=== PATIENT | female | born 1995 | race American Indian/Alaskan Native ===

== ENCOUNTER 2021-07-14 09:05 | Emergency (ER) | payer SELFPAY ==
[2021-07-14 10:40] LABS: Bilirubin,Urine NEG (Negative); Blood,Urine NEG (Negative); Color,Urine Yellow (Yellow); Mucus,Urine FEW /HPF; Protein,Urine <15 mg/dL mg/dL (Negative); Urobilinogen,Urine < 2.0 mg/dL (<2.0)
--- NOTE | 2021-07-14 10:48 | XRay Report ---
CHEST 2 VIEWS INDICATION / CLINICAL INFORMATION: chest pain with abdominal pain. COMPARISON: None available. FINDINGS: SUPPORT DEVICES: None. HEART / MEDIASTINUM: No significant abnormality. LUNGS / PLEURA: No significant pulmonary or pleural abnormality. No pneumothorax. ADDITIONAL FINDINGS: No significant additional findings. IMPRESSION: 1. No acute findings. Signer Name: Emery Stearns DO Signed: 07/14/2021 10:43 AM Workstation Name: [id number]
[2021-07-14 11:14] LABS: Basophils % (Auto) 0.4 % (0.0-1.8); Eosinophils # (Auto) 0.6 K/mm3 (0.0-0.4); Eosinophils % (Auto) 6.6 % (0.0-4.3); Hematocrit 34.6 % (30.3-42.9); Hemoglobin 11.2 gm/dl (10.1-14.3); Lymphocytes # (Auto) 2.4 K/mm3 (1.2-5.4); Lymphocytes % (Auto) 25.6 % (13.4-35.0); Mean Corpuscular HGB Conc 32 % (30-34); Mean Corpuscular Volume 81 fl (79-97); Monocytes # (Auto) 0.9 K/mm3 (0.0-0.8); Monocytes % (Auto) 9.4 % (0.0-7.3); Platelet Count 465 K/mm3 (140-440); Red Blood Count 4.28 M/mm3 (3.65-5.03); Red Cell Distribution Width 15.6 % (13.2-15.2)
[2021-07-14 11:38] LABS: Alanine Aminotransferase 17 units/L (7-56); Albumin 4.4 g/dL (3.9-5); Blood Urea Nitrogen 15 mg/dL (7-17); Calcium 9.4 mg/dL (8.4-10.2); Hemolysis Index 0
[2021-07-14 11:41] LABS: BUN/Creatinine Ratio 21
--- NOTE | 2021-07-14 13:51 | Emergency Department Report ---
ED General Adult HPI - General Chief complaint: Abdominal Pain Stated complaint: CHEST PAIN Time Seen by Provider: 07/14/21 13:43 Source: patient Mode of arrival: Ambulatory Limitations: No Limitations - History of Present Illness Initial comments: Patient is 25 years old female with no significant past medical history. Patient presented to the ER complaining of 1 week history of chest pain, left- sided, sharp with no radiation. Patient stated that pain increases with movement of her left arm. Patient denies any recent injury. She denied any fever or chills. No cough or shortness of breath. Patient also complaining of lower abdominal pain that has been going on on and off for the last few month. She denied any urinary symptoms or vaginal discharge. Severity scale (0 -10): 8 - Related Data Allergies Allergy/AdvReac Type Severity Reaction Status Date / Time No Known Allergies Allergy Unverified 07/14/21 14:17 ED Review of Systems ROS: Stated complaint: CHEST PAIN Other details as noted in HPI Comment: All other systems reviewed and negative Constitutional: denies: chills, fever Respiratory: denies: cough, shortness of breath, SOB with exertion Cardiovascular: chest pain. denies: palpitations Gastrointestinal: abdominal pain. denies: nausea, vomiting, diarrhea, constipation, hematemesis, hematochezia Musculoskeletal: denies: back pain Neurological: denies: headache, weakness, numbness, paresthesias, confusion ED Past Medical Hx - Past Medical History Previous Medical History?: No - Surgical History Past Surgical History?: No ED Physical Exam - General Limitations: No Limitations General appearance: alert, in no apparent distress - Head Head exam: Present: atraumatic, normocephalic, normal inspection - Eye Eye exam: Present: normal appearance - ENT ENT exam: Present: normal exam, normal orophraynx, mucous membranes moist - Neck Neck exam: Present: normal inspection, full ROM. Absent: tenderness, meningismus - Respiratory Respiratory exam: Present: normal lung sounds bilaterally, chest wall tenderness - Cardiovascular Cardiovascular Exam: Present: regular rate, normal rhythm, normal heart sounds - GI/Abdominal GI/Abdominal exam: Present: soft, normal bowel sounds. Absent: distended, tenderness, guarding, rebound, rigid, organomegaly, mass, bruit, pulsatile mass, hernia - Extremities Exam Extremities exam: Present: normal inspection, full ROM, normal capillary refill. Absent: tenderness, pedal edema, joint swelling, calf tenderness - Back Exam Back exam: Present: normal inspection, full ROM. Absent: CVA tenderness (R), CVA tenderness (L) - Neurological Exam Neurological exam: Present: alert, oriented X3, CN II-XII intact, normal gait, reflexes normal. Absent: motor sensory deficit - Psychiatric Psychiatric exam: Present: normal mood - Skin Skin exam: Present: warm, intact, normal color ED Course Vital Signs 07/14/21 07/14/21 07/14/21 09:54 13:54 14:16 Temperature 98.8 F Pulse Rate 81 73 73 Respiratory 20 16 16 Rate Blood Pressure 119/77 118/73 118/67 [Right] O2 Sat by Pulse 99 100 99 Oximetry 07/14/21 14:20 Temperature Pulse Rate Respiratory Rate Blood Pressure [Right] O2 Sat by Pulse 99 Oximetry ED Medical Decision Making - Lab Data Result diagrams: 07/14/21 10:47 07/14/21 10:47 - EKG Data -: EKG Interpreted by Ia EKG shows normal: sinus rhythm Rate: normal - EKG Data Interpretation: no acute changes - Radiology Data Radiology results: report reviewed - Medical Decision Making Patient is 25 years old female with no significant past medical history. Patient presented to the ER complaining of 1 week history of chest pain, left- sided, sharp with no radiation. Patient stated that pain increases with movement of her left arm. Patient denies any recent injury. She denied any fever or chills. No cough or shortness of breath. Patient also complaining of lower abdominal pain that has been going on on and off for the last few month. She denied any urinary symptoms or vaginal discharge. EKG shows sinus rhythm with no ST elevation or depression. Chest x-ray is unremarkable. Labs reviewed and is negative for acute finding. Patient chest pain is reproducible and is most likely related to costochondritis. Patient is given prescription for Naprosyn and Bentyl and advised to follow-up with her primary care physician in the next 2 to 3 days and to return to the ER if she develop any new symptoms. Critical care attestation.: If time is entered above; I have spent that time in minutes in the direct care of this critically ill patient, excluding procedure time. ED Disposition Clinical Impression: Acute chest pain, Acute costochondritis Disposition: HOME / SELF CARE / HOMELESS Is pt being admited?: No Condition: Stable Instructions: Abdominal Pain (ED), Chest Pain (ED), Costochondritis, [id number], Nonspecific Chest Pain, Adult Referrals: PRIMARY CARE,MD [Primary Care Provider] - 3-5 Days
[2021-07-14 16:14] VITALS: BP 123/77
--- NOTE | 2021-07-17 12:18 | Electrocardiograph Report ---
[facility] Test Date: 2021-07-14 Test Time: 10:00:06 Pat Name: LINCOLN FERRO Department: Room: Gender: F Division Traffic Superintendent: Yash HERNANDEZ RN : 1995 Requested By: ED DOC Order Number: [id number] Reading MD: Joshua Fuller Measurements Intervals [place] Rate: 78 P: 45 TX: 122 QRS: 3 QRSD: 82 T: 7 QT: 375 QTc: 427 Interpretive Statements Sinus rhythm No previous ECG available for comparison Electronically Signed On 07-17-2021 12:17:46 EDT by Joshua Fuller
== END 2021-07-14 15:45 | disposition home or self-care (01) ==
LOC: ED 09:05
DX: R07.9 Chest pain, unspecified (principal); M94.0 Chondrocostal junction syndrome [Tietze]
CPT/HCPCS: 36415; 71046; 80053; 81001; 84703; 85025; 93005; 99284